=== PATIENT | male | born 1930 | race Caucasian/White ===

== ENCOUNTER → 2021-06-06 | Day surgery (SDC) | payer MEDICARE, OTHER ==
[2021-06-03 14:50] LABS: BASOPHILS % (AUTO) 0 % (0-1); EOSINOPHILS % (AUTO) 2 % (1-7); LYMPHOCYTES % (AUTO) 20 % (22-44); MEAN CORPUSCULAR HEMOGLOBIN 32.1 pg (27.5-34.5); MEAN CORPUSCULAR HGB CONC 33.6 g/dL (33.2-36.2); MEAN PLATELET VOLUME 8.3 fL (7.4-10.4); MONOCYTES % (AUTO) 10 % (2-9); NEUTROPHILS % (AUTO) 68 % (42-75); PLATELET COUNT 310 x10^3/uL (130-400); RED BLOOD COUNT 4.62 x10^6/uL (4.38-5.82); RED CELL DISTRIBUTION WIDTH 12.3 % (9.4-14.8)
[2021-06-03 15:04] LABS: ALANINE AMINOTRANSFERASE 27 U/L (12-78); ALBUMIN 3.3 g/dL (3.4-5.0); ANION GAP 7 mmol/L (5-15); CALCIUM 9.3 mg/dL (8.5-10.1); CHLORIDE 98 mmol/L (98-107); CREATININE 1.57 mg/dL (0.7-1.3)
[2021-06-03 15:05] LABS: INTERNATIONAL NORMALIZED RATIO 1.04 (0.93-1.1); PROTHROMBIN TIME 11.1 Seconds (9.6-11.5)
[2021-06-03 15:06] LABS: ALKALINE PHOSPHATASE 122 U/L (45-117); BILIRUBIN,TOTAL 0.5 mg/dL (0.2-1.0); TOTAL PROTEIN 8.1 g/dL (6.4-8.2)
[2021-06-03 15:08] LABS: MICROSCOPIC INDICATED
[~2021-06-06] VITALS: Ht 177.8 cm; Wt 82.1 kg
[~2021-06-06] MED LIST: ACETAMINOPHEN 325 MG TABLET PO PRN; ASPI81TA45 PO; CHLORHEXIDINE 15 ML UDC ONE; CHLORHEXIDINE 15 ML UDC PO ONE; EPHEDRINE 50 MG/ML, 1ML IVPush PRN; FENTANYL PF 100 MCG/2ML IV PRN; FURO20TA3 PO; GABA300C PO; GEMCITABINE HCL 1,000 MG in SODIUM CHLORIDE 0.9% 23.7 ML IS ONE; GLIM4TAB8 PO; HYDROmorphone 1 MG/ML, 1ML INJ IVPush PRN; LABETALOL 5MG/ML, 20ML IV PRN; LACTATED RINGERS 1,000 ML IV SCH; LISI20TA21 PO; LOVA40TA2 PO; METF10007 PO; MULT-449 PO; ONDANSETRON 2MG/ML, 2ML IVPush PRN; OXYcodone 5 MG/5 ML ORAL.SOL UDC PO PRN; POTA10TA6 PO; PROMETHAZINE 25 MG/ML, 1ML IVPush PRN; hydrALAzine 20 MG/ML, 1ML IV PRN
[2021-06-06 15:00] VITALS: BP 109/74
== END | disposition home or self-care (01) ==
LOC: OR 14:11
PROVIDERS: ATTEND Urology
DX: N32.89 Other specified disorders of bladder (principal); Z53.8 Procedure and treatment not carried out for other reasons; N39.0 Urinary tract infection, site not specified; Z79.899 Other long term (current) drug therapy
CPT/HCPCS: 36415; 80053; 81001; 82962; 85025; 85610; 87077; 87086; 87186; 93005; J7120; J9201

== ENCOUNTER 2021-06-27 14:30 | Day surgery (SDC) | payer MEDICARE, OTHER ==
[~2021-06-27] VITALS: Ht 177.8 cm; Wt 84.2 kg
[~2021-06-27 14:30] MED LIST changes: -ACETAMINOPHEN 325 MG TABLET PO PRN; -CHLORHEXIDINE 15 ML UDC ONE; -CHLORHEXIDINE 15 ML UDC PO ONE; -EPHEDRINE 50 MG/ML, 1ML IVPush PRN; -FENTANYL PF 100 MCG/2ML IV PRN; +FENTANYL PF 250 MCG/5ML ONE; -GEMCITABINE HCL 1,000 MG in SODIUM CHLORIDE 0.9% 23.7 ML IS ONE; -HYDROmorphone 1 MG/ML, 1ML INJ IVPush PRN; -LABETALOL 5MG/ML, 20ML IV PRN; -LACTATED RINGERS 1,000 ML IV SCH; +OMNIPAQUE 350 MG/ML, 50 ML BOTTLE ONE; -ONDANSETRON 2MG/ML, 2ML IVPush PRN; -OXYcodone 5 MG/5 ML ORAL.SOL UDC PO PRN; -PROMETHAZINE 25 MG/ML, 1ML IVPush PRN; -hydrALAzine 20 MG/ML, 1ML IV PRN
[2021-06-27] MEDS ORDERED: LABETALOL 5MG/ML, 20ML IV PRN (15:00)
[2021-06-27] MEDS ORDERED: ONDANSETRON 2MG/ML, 2ML IVPush PRN (15:00)
[2021-06-27] MEDS ORDERED: HYDROmorphone 1 MG/ML, 1ML INJ IVPush PRN (15:00)
[2021-06-27] MEDS ORDERED: morphine SULFATE 10 MG/ML, 1ML IVPush PRN (15:00)
[2021-06-27] MEDS ORDERED: ACETAMINOPHEN 325 MG TABLET PO PRN (15:00)
[2021-06-27] MEDS ORDERED: FENTANYL PF 100 MCG/2ML IV PRN (15:00)
[2021-06-27] MEDS ORDERED: MEPERIDINE/PF 25MG/0.5ML IVPush PRN (15:00)
[2021-06-27] MEDS ORDERED: OXYcodone 5 MG/5 ML ORAL.SOL UDC PO PRN (15:00)
[2021-06-27] MEDS ORDERED: hydrALAzine 20 MG/ML, 1ML IV PRN (15:00)
[2021-06-27 15:06] VITALS: BP 135/91
[2021-06-27] MEDS ORDERED: CHLORHEXIDINE 15 ML UDC ONE (15:22)
[2021-06-27] MEDS ORDERED: PLEASE ENTER HEIGHT AND WEIGHT MC SCH (15:30)
[2021-06-27] MEDS ORDERED: CHLORHEXIDINE 15 ML UDC PO ONE (15:30)
[2021-06-27] MEDS ORDERED: LACTATED RINGERS 1,000 ML IV SCH (15:30)
[2021-06-27] MEDS ORDERED: GEMCITABINE HCL 1,000 MG in SODIUM CHLORIDE 0.9% 23.7 ML IS SCH (15:30)
[2021-06-27] MEDS ORDERED: EPHEDRINE 50 MG/ML, 1ML ONE ×2 (15:45)
[2021-06-27] MEDS ORDERED: ONDANSETRON 2MG/ML, 2ML ONE (15:48)
[2021-06-27] MEDS ORDERED: CEFAZOLIN 1,000 MG ONE (15:48)
[2021-06-27] MEDS ORDERED: DEXAMETHASONE 4 MG/ML, 1ML ONE (15:48)
[2021-06-27] MEDS ORDERED: PROPOFOL 10 MG/ML, 20ML ONE (15:48)
[2021-06-27] MEDS ORDERED: LIDOCAINE-MPF 2% ,5ML ONE (15:52)
== END 2021-06-27 18:15 | disposition home or self-care (01) ==
LOC: OR 14:30
PROVIDERS: ATTEND Urology
DX: D49.4 Neoplasm of unspecified behavior of bladder (principal); C67.9 Malignant neoplasm of bladder, unspecified; N40.0 Benign prostatic hyperplasia without lower urinary tract symptoms; I10 Essential (primary) hypertension; E11.9 Type 2 diabetes mellitus without complications; Z79.82 Long term (current) use of aspirin; Z79.84 Long term (current) use of oral hypoglycemic drugs; Z79.899 Other long term (current) drug therapy
CPT/HCPCS: 51720; 52235; 52332; 74420; 82962; 88305; 88307; C1758; C1769; C2617; J0690; J1100; J2405; J2704; J3010; J7120; J9201; Q9967